=== PATIENT | female | born 1930 | race Caucasian/White ===

== ENCOUNTER 2021-04-21 11:03 | Emergency (ER) | payer MEDICARE, OTHER ==
[~2021-04-21 11:03] MED LIST: ATIVAN1 MG PO; CARDIZEM CD180 MG PO; CELEXA20 MG PO; K-DUR20 MEQ PO; LASIX20 MG PO; LOPRESSOR50 MG PO; PRINIVIL10 MG PO; XARELTO20 MG PO
== END 2021-04-21 11:34 | disposition home or self-care (01) ==
LOC: FER 11:03
DX: K91.840 Postprocedural hemorrhage of a digestive system organ or structure following a digestive system procedure (principal)
CPT/HCPCS: 99283

== ENCOUNTER 2021-06-13 09:39 | Inpatient (IN) | payer MEDICARE, OTHER ==
[~2021-06-13] VITALS: Ht 157.5 cm; Wt 42.3 kg
[2021-06-13 10:41] LABS: BASOPHIL 0.3 % (0-2); EOSINOPHIL 0.2 % (0-7); HCT 24.5 % (37.0-47.0); HGB 7.9 g/dl (12.5-16.0); INR 1.42 (0.9-1.2); LYMPHOCYTE 19.7 % (15-48); MCH 31.2 pg (25.0-31.0); MCHC 32.2 g/dL (32.0-36.0); MCV 96.8 fL (78.0-100.0); MONOCYTE 9.3 % (0-12); MPV 10.2 fL (6.0-9.5); NRBC 0; PLT 283 K/uL (150-400); PROTHROMBIN TIME 16.6 SECONDS (11.8-13.4); PTT 31.5 SECONDS (24.4-34.7); RBC 2.53 M/uL (4.20-5.40); RDW 14.2 % (11.5-14.0); WBC 8.6 K/uL (4.0-10.5)
[2021-06-13 10:49] LABS: ALBUMIN 3.2 g/dL (3.4-5.0); BILIRUBIN - TOTAL 0.2 mg/dL (0.2-1.0); BUN/CREAT RATIO (CALC) 27.2 RATIO; CREATININE 0.92 mg/dL (0.51-0.95); GLOBULIN (CALCULATION) 2.7 g/dL; POTASSIUM 4.3 mmol/L (3.5-5.1); TOTAL PROTEIN 5.9 g/dL (6.4-8.2)
[2021-06-13] MEDS ORDERED: LOPRESSOR25 MG PO (14:15)
[2021-06-13] MEDS ORDERED: COZAAR100 MG PO (14:16)
[2021-06-13] MEDS ORDERED: XARELTO15 MG PO (14:17)
[2021-06-14 05:34] LABS: BASOPHIL 0.4 % (0-2); EOSINOPHIL 0.6 % (0-7); HCT 33.3 % (37.0-47.0); LYMPHOCYTE 15.1 % (15-48); MCH 30.6 pg (25.0-31.0); MCHC 33.3 g/dL (32.0-36.0); MONOCYTE 7.5 % (0-12); MPV 9.5 fL (6.0-9.5); NRBC 0; PLT 240 K/uL (150-400); RBC 3.63 M/uL (4.20-5.40); RDW 14.8 % (11.5-14.0); WBC 10.1 K/uL (4.0-10.5)
[2021-06-14 05:39] LABS: HGB 11.1 g/dl (12.5-16.0); MCV 91.7 fL (78.0-100.0)
[2021-06-14 06:04] LABS: INR 1.13 (0.9-1.2); PROTHROMBIN TIME 13.9 SECONDS (11.8-13.4)
[2021-06-14 06:10] LABS: BUN/CREAT RATIO (CALC) 16.7 RATIO; CREATININE 0.9 mg/dL (0.51-0.95); POTASSIUM 4.1 mmol/L (3.5-5.1)
[2021-06-15 05:23] LABS: BASOPHIL 0.3 % (0-2); EOSINOPHIL 0.2 % (0-7); HCT 30.2 % (37.0-47.0); HGB 10.3 g/dl (12.5-16.0); LYMPHOCYTE 9.5 % (15-48); MCH 30.8 pg (25.0-31.0); MCHC 34.1 g/dL (32.0-36.0); MCV 90.4 fL (78.0-100.0); MONOCYTE 6.8 % (0-12); NEUTROPHIL 82.8 % (41-80); NRBC 0; PLT 233 K/uL (150-400); RBC 3.34 M/uL (4.20-5.40); RDW 14.5 % (11.5-14.0); WBC 13.7 K/uL (4.0-10.5)
[2021-06-15 05:32] LABS: BUN/CREAT RATIO (CALC) 12.1 RATIO; CREATININE 0.91 mg/dL (0.51-0.95); POTASSIUM 4.4 mmol/L (3.5-5.1)
--- NOTE | 2021-06-15 10:21 | NUR ---
06/15/21 Ms. Clemons lives with her spouse. They have 2 supportive children. Ms. Clemons was independent in the home and community prior to admission. OT suggested a rw. Ms. Clemons declined a rw and HH services.
[2021-06-16 06:13] LABS: BASOPHIL 0.4 % (0-2); EOSINOPHIL 0.6 % (0-7); HCT 29.1 % (37.0-47.0); HGB 9.8 g/dl (12.5-16.0); MCH 31.2 pg (25.0-31.0); MCHC 33.7 g/dL (32.0-36.0); MCV 92.7 fL (78.0-100.0); MPV 9.7 fL (6.0-9.5); NEUTROPHIL 80.5 % (41-80); NRBC 0; PLT 221 K/uL (150-400); RBC 3.14 M/uL (4.20-5.40); RDW 14.7 % (11.5-14.0); WBC 10.5 K/uL (4.0-10.5)
[2021-06-16 06:38] LABS: BUN/CREAT RATIO (CALC) 9.6 RATIO; CREATININE 0.94 mg/dL (0.51-0.95); POTASSIUM 3.9 mmol/L (3.5-5.1)
== END 2021-06-16 12:55 | disposition home or self-care (01) | DRG 813 ==
LOC: FER 09:39 → FMS 13:08
PROVIDERS: Emergency Medicine; Internal Medicine; Student in an Organized Health Care Education/Training Program; ADMIT Allergy & Immunology Allergy
PROC: 30233N1 Transfusion of Nonautologous Red Blood Cells into Peripheral Vein, Percutaneous Approach (ICD-10-PCS; 2021-06-13)
PROC: 0DJ08ZZ Inspection of Upper Intestinal Tract, Via Natural or Artificial Opening Endoscopic (ICD-10-PCS; principal; 2021-06-14 12:15)
PROC: 0DJD8ZZ Inspection of Lower Intestinal Tract, Via Natural or Artificial Opening Endoscopic (ICD-10-PCS; 2021-06-14 12:15)
DX: D68.32 Hemorrhagic disorder due to extrinsic circulating anticoagulants (principal); K57.31 Diverticulosis of large intestine without perforation or abscess with bleeding; D62 Acute posthemorrhagic anemia; Z68.1 Body mass index [BMI] 19.9 or less, adult; I48.0 Paroxysmal atrial fibrillation; I11.9 Hypertensive heart disease without heart failure; Z20.822 Contact with and (suspected) exposure to COVID-19; T45.515A Adverse effect of anticoagulants, initial encounter; K31.7 Polyp of stomach and duodenum; R63.6 Underweight; I27.20 Pulmonary hypertension, unspecified; I35.1 Nonrheumatic aortic (valve) insufficiency; F03.90 Unspecified dementia, unspecified severity, without behavioral disturbance, psychotic disturbance, mood disturbance, and anxiety; F41.9 Anxiety disorder, unspecified; F32.9 Major depressive disorder, single episode, unspecified; Z98.890 Other specified postprocedural states; Z79.01 Long term (current) use of anticoagulants; Z79.899 Other long term (current) drug therapy; Z90.89 Acquired absence of other organs; Z87.442 Personal history of urinary calculi
CPT/HCPCS: 36415; 36430; 80048; 80053; 85025; 85610; 85730; 86850; 86900; 86901; 86922; 97161; 97165; 97535; C9113; J0360; J1610; J2704; J7040; J7120; P9016; Q9967; U0002

== ENCOUNTER 2021-06-25 03:06 | Emergency (ER) | payer MEDICARE, OTHER ==
[~2021-06-25 03:06] MED LIST changes: +COZAAR100 MG PO; +LOPRESSOR25 MG PO; +XARELTO15 MG PO
[2021-06-25 04:04] LABS: BASOPHIL 0.4 % (0-2); EOSINOPHIL 0.2 % (0-7); HCT 30.2 % (37.0-47.0); HGB 9.8 g/dl (12.5-16.0); LYMPHOCYTE 4.5 % (15-48); MCH 30.9 pg (25.0-31.0); MCHC 32.5 g/dL (32.0-36.0); MCV 95.3 fL (78.0-100.0); MONOCYTE 8.1 % (0-12); MPV 10.1 fL (6.0-9.5); NEUTROPHIL 86.3 % (41-80); NRBC 0; PLT 217 K/uL (150-400); RBC 3.17 M/uL (4.20-5.40); RDW 13.3 % (11.5-14.0); WBC 14.1 K/uL (4.0-10.5)
[2021-06-25 04:27] LABS: ALBUMIN 2.4 g/dL (3.4-5.0); BILIRUBIN - TOTAL 0.5 mg/dL (0.2-1.0); GLOBULIN (CALCULATION) 3.9 g/dL; POTASSIUM 3.4 mmol/L (3.5-5.1); TOTAL PROTEIN 6.3 g/dL (6.4-8.2)
[2021-06-25 04:41] LABS: BILIRUBIN NEGATIVE (NEGATIVE); BLOOD 1+ Ery/uL (NEGATIVE); CLARITY HAZY (CLEAR); COLOR YELLOW (YELLOW); GLUCOSE (U) NORMAL (NORMAL); LEUKOCYTES 1+ Leu/uL (NEGATIVE); NITRITE POSITIVE (NEGATIVE); PROTEIN 2+ mg/dL (NEGATIVE); UROBILINOGEN 0.2 mg/dL (0.2-1.0)
[2021-06-25 04:46] LABS: BACTERIA 4+; SQUAMOUS EPITHELIAL CELLS RARE; URINARY WBC TNTC
[2021-06-25] MEDS ORDERED: MACROBID100 MG PO (05:15)
== END 2021-06-25 05:45 | disposition home or self-care (01) ==
LOC: FER 03:06
PROVIDERS: Emergency Medicine
DX: N39.0 Urinary tract infection, site not specified (principal); Z98.890 Other specified postprocedural states
CPT/HCPCS: 36415; 80053; 81001; 85025; 87076; 87088; 87186; 99283; J0696

== ENCOUNTER 2022-05-13 13:49 | Inpatient (IN) | payer MEDICARE, OTHER ==
[~2022-05-13] VITALS: Ht 157.5 cm; Wt 42.2 kg
[~2022-05-13 13:49] MED LIST changes: +MACROBID100 MG PO
[2022-05-13 14:32] LABS: BASOPHIL 0.3 % (0-2); EOSINOPHIL 0.6 % (0-7); HCT 42.7 % (37.0-47.0); HGB 14.2 g/dl (12.5-16.0); LYMPHOCYTE 25.2 % (15-48); MCH 30.2 pg (25.0-31.0); MCHC 33.3 g/dL (32.0-36.0); MCV 90.9 fL (78.0-100.0); MONOCYTE 5.5 % (0-12); MPV 10.3 fL (6.0-9.5); NEUTROPHIL 67.9 % (41-80); NRBC 0; PLT 283 K/uL (150-400); WBC 9.6 K/uL (4.0-10.5)
[2022-05-13 14:36] LABS: INR 2.05 (0.9-1.2); PROTHROMBIN TIME 22.4 SECONDS (11.9-13.9)
[2022-05-13 14:43] LABS: ALBUMIN 3.7 g/dL (3.4-5.0); BILIRUBIN - TOTAL 0.5 mg/dL (0.2-1.0); BUN/CREAT RATIO (CALC) 29.2 RATIO; CREATININE 1.06 mg/dL (0.51-0.95); GLOBULIN (CALCULATION) 3.2 g/dL; POTASSIUM 4.5 mmol/L (3.5-5.1); TOTAL PROTEIN 6.9 g/dL (6.4-8.2)
[2022-05-13 15:34] LABS: BILIRUBIN NEGATIVE (NEGATIVE); BLOOD NEGATIVE Ery/uL (NEGATIVE); CLARITY CLEAR (CLEAR); COLOR YELLOW (YELLOW); GLUCOSE (U) TRACE mg/dL (NORMAL); LEUKOCYTES NEGATIVE Leu/uL (NEGATIVE); NITRITE POSITIVE (NEGATIVE); PROTEIN NEGATIVE (NEGATIVE); SPECIFIC GRAVITY 1.025 (1.001-1.030); UROBILINOGEN 0.2 mg/dL (0.2-1.0)
[2022-05-13 15:40] LABS: BACTERIA 4+
[2022-05-14 06:13] LABS: BASOPHIL 0.3 % (0-2); EOSINOPHIL 0.3 % (0-7); HCT 33.6 % (37.0-47.0); HGB 11.2 g/dl (12.5-16.0); LYMPHOCYTE 18.3 % (15-48); MCHC 33.3 g/dL (32.0-36.0); MCV 93.1 fL (78.0-100.0); MONOCYTE 8.3 % (0-12); MPV 10.2 fL (6.0-9.5); NEUTROPHIL 72.5 % (41-80); NRBC 0; PLT 209 K/uL (150-400); RBC 3.61 M/uL (4.20-5.40); RDW 14.2 % (11.5-14.0); WBC 13.6 K/uL (4.0-10.5)
[2022-05-14 06:25] LABS: INR 1.43 (0.9-1.2); PTT 34.9 SECONDS (24.9-34.6)
[2022-05-14 06:31] LABS: BUN/CREAT RATIO (CALC) 29.9 RATIO; CREATININE 0.97 mg/dL (0.51-0.95); MAGNESIUM 1.9 mg/dL (1.8-2.4); POTASSIUM 4.5 mmol/L (3.5-5.1)
[2022-05-14] MEDS ORDERED: XARELTO15 MG PO (12:07)
[2022-05-14 14:30] LABS: IRON % SATURATION 11.8 %SAT (20-50)
[2022-05-15 07:39] LABS: BASOPHIL 0.4 % (0-2); EOSINOPHIL 1.1 % (0-7); HCT 31.9 % (37.0-47.0); HGB 10.3 g/dl (12.5-16.0); LYMPHOCYTE 17.7 % (15-48); MCH 30.1 pg (25.0-31.0); MCHC 32.3 g/dL (32.0-36.0); MCV 93.3 fL (78.0-100.0); MONOCYTE 10.5 % (0-12); MPV 10.3 fL (6.0-9.5); NEUTROPHIL 69.8 % (41-80); NRBC 0; PLT 175 K/uL (150-400); RBC 3.42 M/uL (4.20-5.40); RDW 14.1 % (11.5-14.0); WBC 10.9 K/uL (4.0-10.5)
[2022-05-16 07:17] LABS: BASOPHIL 0.3 % (0-2); EOSINOPHIL 1.2 % (0-7); HCT 26.7 % (37.0-47.0); HGB 8.8 g/dl (12.5-16.0); MCH 30.6 pg (25.0-31.0); MCV 92.7 fL (78.0-100.0); MONOCYTE 9.4 % (0-12); MPV 10.7 fL (6.0-9.5); NEUTROPHIL 73.7 % (41-80); NRBC 0; PLT 169 K/uL (150-400); RBC 2.88 M/uL (4.20-5.40); RDW 13.9 % (11.5-14.0); WBC 10.9 K/uL (4.0-10.5)
[2022-05-16 07:30] LABS: INR 1.03 (0.9-1.2); PROTHROMBIN TIME 13.2 SECONDS (11.9-13.9); PTT 34.4 SECONDS (24.9-34.6)
[2022-05-16 07:51] LABS: BUN/CREAT RATIO (CALC) 27.1 RATIO; CREATININE 0.85 mg/dL (0.51-0.95); POTASSIUM 4.2 mmol/L (3.5-5.1)
--- NOTE | 2022-05-16 14:04 | NUR ---
PATIENT TO OR PER OR STAFF, NO DIFFICULTIES NOTED
[2022-05-17 07:50] LABS: BASOPHIL 0.4 % (0-2); EOSINOPHIL 1.1 % (0-7); HCT 22.6 % (37.0-47.0); HGB 7.4 g/dl (12.5-16.0); MCH 30.3 pg (25.0-31.0); MCHC 32.7 g/dL (32.0-36.0); MCV 92.6 fL (78.0-100.0); MONOCYTE 10.5 % (0-12); MPV 10.2 fL (6.0-9.5); NEUTROPHIL 75.5 % (41-80); NRBC 0; PLT 171 K/uL (150-400); RBC 2.44 M/uL (4.20-5.40); RDW 13.7 % (11.5-14.0); WBC 10.7 K/uL (4.0-10.5)
[2022-05-17 08:10] LABS: BUN/CREAT RATIO (CALC) 21.8 RATIO; CREATININE 0.78 mg/dL (0.51-0.95); POTASSIUM 4.3 mmol/L (3.5-5.1)
[2022-05-18 07:38] LABS: BASOPHIL 0.2 % (0-2); EOSINOPHIL 1.2 % (0-7); HGB 7.3 g/dl (12.5-16.0); LYMPHOCYTE 19.2 % (15-48); MCH 30.4 pg (25.0-31.0); MCHC 33.2 g/dL (32.0-36.0); MCV 91.7 fL (78.0-100.0); MONOCYTE 8.6 % (0-12); MPV 9.7 fL (6.0-9.5); NEUTROPHIL 70.3 % (41-80); NRBC 0; PLT 193 K/uL (150-400); RDW 13.8 % (11.5-14.0); WBC 10.6 K/uL (4.0-10.5)
[2022-05-18 10:41] LABS: BILIRUBIN NEGATIVE (NEGATIVE); BLOOD TRACE-INTACT Ery/uL (NEGATIVE); CLARITY CLEAR (CLEAR); COLOR YELLOW (YELLOW); GLUCOSE (U) NORMAL (NORMAL); LEUKOCYTES NEGATIVE Leu/uL (NEGATIVE); NITRITE NEGATIVE (NEGATIVE); PROTEIN TRACE (LOW) mg/dL (NEGATIVE); SPECIFIC GRAVITY 1.025 (1.001-1.030); UROBILINOGEN 0.2 mg/dL (0.2-1.0)
[2022-05-19 06:31] LABS: BASOPHIL 0.3 % (0-2); EOSINOPHIL 1.1 % (0-7); HCT 19.2 % (37.0-47.0); MCH 30.5 pg (25.0-31.0); MCHC 33.3 g/dL (32.0-36.0); MCV 91.4 fL (78.0-100.0); MONOCYTE 11.1 % (0-12); MPV 10.5 fL (6.0-9.5); NEUTROPHIL 76.1 % (41-80); NRBC 0; PLT 218 K/uL (150-400); WBC 9.1 K/uL (4.0-10.5)
[2022-05-19 06:34] LABS: HGB 6.4 g/dl (12.5-16.0)
[2022-05-19 06:52] LABS: BUN/CREAT RATIO (CALC) 20.9 RATIO; CREATININE 0.67 mg/dL (0.51-0.95); POTASSIUM 3.6 mmol/L (3.5-5.1)
[2022-05-20 06:13] LABS: BASOPHIL 0.4 % (0-2); EOSINOPHIL 2.3 % (0-7); HCT 29.9 % (37.0-47.0); LYMPHOCYTE 10.3 % (15-48); MCHC 33.4 g/dL (32.0-36.0); MCV 89.8 fL (78.0-100.0); MONOCYTE 8.9 % (0-12); MPV 9.9 fL (6.0-9.5); NEUTROPHIL 77.7 % (41-80); NRBC 0; PLT 275 K/uL (150-400); RBC 3.33 M/uL (4.20-5.40); RDW 14.9 % (11.5-14.0); WBC 9.4 K/uL (4.0-10.5)
[2022-05-20 06:37] LABS: CREATININE 0.61 mg/dL (0.51-0.95); POTASSIUM 3.6 mmol/L (3.5-5.1)
[2022-05-21 06:43] LABS: BASOPHIL 0.4 % (0-2); EOSINOPHIL 1.9 % (0-7); HCT 32.9 % (37.0-47.0); HGB 10.7 g/dl (12.5-16.0); LYMPHOCYTE 12.3 % (15-48); MCH 29.8 pg (25.0-31.0); MCHC 32.5 g/dL (32.0-36.0); MCV 91.6 fL (78.0-100.0); MONOCYTE 7.5 % (0-12); MPV 9.9 fL (6.0-9.5); NEUTROPHIL 77.5 % (41-80); NRBC 0; PLT 380 K/uL (150-400); RBC 3.59 M/uL (4.20-5.40); RDW 15.2 % (11.5-14.0); WBC 10.7 K/uL (4.0-10.5)
[2022-05-21 07:18] LABS: CREATININE 0.6 mg/dL (0.51-0.95); POTASSIUM 3.4 mmol/L (3.5-5.1)
[2022-05-22 06:27] LABS: BILIRUBIN NEGATIVE (NEGATIVE); BLOOD NEGATIVE Ery/uL (NEGATIVE); CLARITY CLEAR (CLEAR); COLOR YELLOW (YELLOW); GLUCOSE (U) NORMAL (NORMAL); LEUKOCYTES NEGATIVE Leu/uL (NEGATIVE); NITRITE NEGATIVE (NEGATIVE); PROTEIN NEGATIVE (NEGATIVE); UROBILINOGEN 0.2 mg/dL (0.2-1.0); pH 7.5 (5.0-9.0)
--- NOTE | 2022-05-22 07:15 | NUR ---
PATIENT HAD INCREASED CONFUSION THROUGHOUT NIGHT, PATIENT HAD BEEN VOIDING. CONCERN ESCALATED TO MD AND UA ORDERED. UA RESULTED NEGATIVE. BLADDER SCAN OBTAINED AND 496 WAS RETAINING IN THE BLADDER. STRAIGHT CATH PERFORMED STERILE TECHNIQUE USED AND BLADDER EMPTIED.
--- NOTE | 2022-05-22 13:59 | NUR ---
05/22/22 [facility] has accept patient for admission today. Family will transport.
[2022-05-22] MEDS ORDERED: DIFLUCAN 100MG100 MG PO (14:18)
[2022-05-22] MEDS ORDERED: 8 HOUR650 MG PO (14:18)
[2022-05-22] MEDS ORDERED: SENNOSIDES-DOC1 EACH PO (14:18)
[2022-05-22] MEDS ORDERED: TAMSULOSIN HCL0.4 MG PO (14:18)
[2022-05-22] MEDS ORDERED: MIRALAX17 GM PO (14:18)
--- NOTE | 2022-05-22 14:46 | NUR ---
05/22/22 Please call report to: [phone] and fax DS: [phone].
== END 2022-05-22 17:00 | DRG 481 ==
LOC: FER 13:49 → FMS 15:59
PROVIDERS: Internal Medicine; Nurse Practitioner; Nurse Practitioner Acute Care; Orthopaedic Surgery; Physician Assistant; ADMIT Internal Medicine
PROC: 0QS606Z Reposition Right Upper Femur with Intramedullary Internal Fixation Device, Open Approach (ICD-10-PCS; principal; 2022-05-16 16:30)
PROC: 30233M1 Transfusion of Nonautologous Plasma Cryoprecipitate into Peripheral Vein, Percutaneous Approach (ICD-10-PCS; 2022-05-19)
PROC: 30233M1 Transfusion of Nonautologous Plasma Cryoprecipitate into Peripheral Vein, Percutaneous Approach (ICD-10-PCS; 2022-05-19)
PROC: 30233N1 Transfusion of Nonautologous Red Blood Cells into Peripheral Vein, Percutaneous Approach (ICD-10-PCS; 2022-05-19)
DX: S72.141A Displaced intertrochanteric fracture of right femur, initial encounter for closed fracture (principal); B37.0 Candidal stomatitis; F05 Delirium due to known physiological condition; Z68.1 Body mass index [BMI] 19.9 or less, adult; D62 Acute posthemorrhagic anemia; F03.90 Unspecified dementia, unspecified severity, without behavioral disturbance, psychotic disturbance, mood disturbance, and anxiety; B96.20 Unspecified Escherichia coli [E. coli] as the cause of diseases classified elsewhere; K59.00 Constipation, unspecified; G89.18 Other acute postprocedural pain; I48.0 Paroxysmal atrial fibrillation; R63.6 Underweight; I11.9 Hypertensive heart disease without heart failure; I35.1 Nonrheumatic aortic (valve) insufficiency; N30.90 Cystitis, unspecified without hematuria; R13.10 Dysphagia, unspecified; D50.9 Iron deficiency anemia, unspecified; W19.XXXA Unspecified fall, initial encounter; Z79.01 Long term (current) use of anticoagulants; Z86.73 Personal history of transient ischemic attack (TIA), and cerebral infarction without residual deficits; Y92.009 Unspecified place in unspecified non-institutional (private) residence as the place of occurrence of the external cause; Z98.890 Other specified postprocedural states; Z82.49 Family history of ischemic heart disease and other diseases of the circulatory system
CPT/HCPCS: 36415; 36430; 70450; 71045; 73501; 73502; 76000; 80048; 80053; 81001; 81003; 82607; 83540; 83550; 83735; 83880; 85025; 85610; 85730; 86850; 86900; 86901; 86922; 87076; 87088; 87186; 93005; 94010; 96374; 96375; 97110; 97162; 97166; 97530; 97530-GP; 97535; C1713; J0696; J2270; J2405; J2704; J2916; J3010; J3370; J7030; J7040; J7050; J7120; P9016; U0002